=== PATIENT | male | born 1960 | race Caucasian/White ===

== ENCOUNTER 2018-01-16 08:14 | Day surgery (SDC) | payer BC ==
[2018-01-15 12:37] VITALS: BMI 36.1
[~2018-01-16 08:14] MED LIST: Cyclopentolate 1% Opth Drop 2 ML BOT FS SCH; Dexamethasone 20 MG/5 ML VIAL ONE; Fluorouracil 100 MG, Enoxaparin Sodium 25 MG, EPINEPHrine 0.3 MG, Dextrose 50% 3 ML in ... IVPB SCH; Lidocaine 1% PF 5 ML VIAL ONE; Ondansetron HCl/PF 4 MG/2 ML Vial ONE; PROPOFOL 200 MG/20 ML VIAL ONE; Phenylephrine 2.5% Ophth Soln 5 ML BOT FS SCH
[2018-01-16] MEDS ORDERED: Cyclopentolate 1% Opth Drop 2 ML BOT ONE (08:59)
[2018-01-16] MEDS ORDERED: Phenylephrine 2.5% Ophth Soln 5 ML BOT ONE (08:59)
[2018-01-16] MEDS ORDERED: Midazolam HCl 2 mg/2 ml Vial ONE ×2 (10:32→11:25)
[2018-01-16] MEDS ORDERED: Fentanyl 250 MCG/5 ML VIAL ONE (11:25)
--- NOTE | 2018-01-17 13:53 | OP ---
DATE OF PROCEDURE: 02/04/2018 PREOPERATIVE DIAGNOSIS: Rhegmatogenous retinal detachment, left eye. POSTOPERATIVE DIAGNOSIS: Rhegmatogenous retinal detachment, left eye. PROCEDURE: Complex retinal detachment repair, left eye. SURGEON: Dr. Hasmukh Allred ANESTHESIA: General endotracheal anesthesia. COMPLICATIONS: None. PROCEDURE IN DETAIL: The patient was identified in the preoperative holding area. Appropriate infor med consent for planned surgical procedure on the left eye had been obtained, the patient was transpo rted to the operative suite where appropriate cardiopulmonary monitoring was established. Local anes thesia was obtained using retrobulbar and modified Van lid block using 50/50 mixture of 4% lidocaine and 0.75% bupivacaine. The patient was prepped and draped in the usual sterile manner for ophthalmic surgery on the left eye. Lid speculum was placed in the left eye. The 25-gauge trocars were placed in conjunctiva and sclera supratemporally, inferotemporally, and supranasally. Infusion line was pl aced inferotemporally. Light pipe and vitreous cutter were inserted into the eye. Core vitrectomy w as performed. Vitreous was trimmed 360 degrees using wide field viewing system. Peripheral holes we re identified. Posterior drain was created using endocautery. Complete air fluid exchange was perfo rmed, allowing fluid to drain posteriorly. Residual scar tissue of the retina was carefully peeled a llowing the retina to flatten completely. 360 laser was placed using endolaser delivery device. 28% sulfur hexafluoride gas was infused into the eye. Trocars were removed. Eye was noted to retain pr essure well. Retrobulbar, Kenalog and subconjunctival Ancef were placed. Atropine and antibiotic oi ntment were placed, and the eye was patched and shielded. The patient was taken to the postoperative recovery unit in good condition having suffered no immediate perioperative complications. DISCHARGE INSTRUCTIONS: The patient was instructed to keep patch and shield on, avoid lifting and be nding, and follow up in the morning with Dr. Allred.
== END 2018-01-16 14:42 | disposition home or self-care (01) ==
LOC: SDC 08:14
PROVIDERS: ATTEND Ophthalmology Retina Specialist
PROC: 08T53ZZ Resection of Left Vitreous, Percutaneous Approach (ICD-10-PCS; principal; 2018-01-16)
PROC: 08QF3ZZ Repair Left Retina, Percutaneous Approach (ICD-10-PCS; principal; 2018-01-16)
DX: H33.022 Retinal detachment with multiple breaks, left eye (principal); Z98.41 Cataract extraction status, right eye; Z98.42 Cataract extraction status, left eye; Z96.1 Presence of intraocular lens; Z79.899 Other long term (current) drug therapy
CPT/HCPCS: 67025; J0171; J1100; J1650; J2001; J2250; J2405; J2704; J3010; J9190

== ENCOUNTER 2019-04-16 16:50 | Day surgery (SDC) | payer BC ==
[~2019-04-16 16:50] MED LIST changes: +Bupivacaine 0.75% 10 ML AMP ONE; +CEFAZOLIN 1 GM VIAL ONE; -Cyclopentolate 1% Opth Drop 2 ML BOT FS SCH; -Dexamethasone 20 MG/5 ML VIAL ONE; -Fluorouracil 100 MG, Enoxaparin Sodium 25 MG, EPINEPHrine 0.3 MG, Dextrose 50% 3 ML in ... IVPB SCH; +Lidocaine 4% PF 5 ML AMP ONE; +Maxitrol 0.1% Opth Oint 3.5 GM TUBE ONE; -Ondansetron HCl/PF 4 MG/2 ML Vial ONE; -Phenylephrine 2.5% Ophth Soln 5 ML BOT FS SCH; +Triamcinolone 40 MG/ML VIAL ONE
[2019-04-16] MEDS ORDERED: Phenylephrine 2.5% Ophth Soln 5 ML BOT FS SCH (16:58)
[2019-04-16] MEDS ORDERED: Cyclopentolate 1% Opth Drop 2 ML BOT FS SCH (16:58)
[2019-04-16] MEDS ORDERED: Fluorouracil 100 MG, Enoxaparin Sodium 25 MG, EPINEPHrine 0.3 MG in Ophthalmic Irrigati... IRR SCH (17:01)
[2019-04-16] MEDS ORDERED: Cyclopentolate 1% Opth Drop 2 ML BOT ONE (17:03)
[2019-04-16] MEDS ORDERED: Phenylephrine 2.5% Ophth Soln 5 ML BOT ONE (17:03)
[2019-04-16] MEDS ORDERED: Fentanyl 100 MCG/2 ML VIAL ONE ×2 (19:58→20:03)
[2019-04-16] MEDS ORDERED: Ondansetron PF 4 MG/2 ML Vial ONE (22:17)
--- NOTE | 2019-04-17 02:29 | OP ---
DATE OF PROCEDURE: 04/16/2019 PREOPERATIVE DIAGNOSIS: Rhegmatogenous retinal detachment, right eye. POSTOPERATIVE DIAGNOSIS: Rhegmatogenous retinal detachment, right eye. PROCEDURE PERFORMED: Pars plana vitrectomy, retinal patch repair, right eye. ANESTHESIA: General endotracheal anesthesia. PROCEDURE IN DETAIL: The patient was identified in the preop holding area. Appropriate informed consent for the planned surgical procedure on the right eye had been obtained. The patient was transported to the operative suite, where appropriate cardiopulmonary monitoring was established. General endotracheal anesthesia was initiated. The patient was prepped and draped in usual sterile manner for ophthalmic surgery in the right eye. Retrobulbar block was placed in the right eye. A 25-gauge trocar was placed through the conjunctiva and sclera supratemporally, inferotemporally, and supranasally. Infusion line was placed inferotemporally. Light pipe and vitreous cutter inserted to the eye. Core vitrectomy was performed. Attention was turned to the temporal retinal detachment. Breaks were noted at the o'clock and 8 o'clock positions at the . Posterior drained retinotomy was created along the inferotemporal arcade. Complete air-fluid exchange was performed and 10 minutes being allowed for fluid to drain posteriorly. Retinal cyst was also drained. Laser barricade was placed using Endolaser delivery device. 15% propane gas was infused into the eye. Trocars were removed. The eye was noted to retain pressure well. Retrobulbar Kenalog and subconjunctival Ancef were placed. Atropine antibiotic was placed and the eye was patched and shielded. The patient was taken to the postoperative care unit in good condition, having suffered no immediate perioperative complications. The patient was instructed to keep the patch and shield on, avoid lifting or bending, positioning right side down. Followup appointment with Dr. Allred. Job ID: [id number]
== END 2019-04-16 22:45 | disposition home or self-care (01) ==
LOC: SDC 16:50
PROVIDERS: ATTEND Ophthalmology Retina Specialist
PROC: 08T43ZZ Resection of Right Vitreous, Percutaneous Approach (ICD-10-PCS; principal; 2019-04-16)
DX: H33.021 Retinal detachment with multiple breaks, right eye (principal)
CPT/HCPCS: 67025; J0171; J0690; J1650; J2001; J2405; J2704; J3010; J3301; J3490; J9190